=== PATIENT | female | born 1955 | race Caucasian/White ===

== ENCOUNTER 2019-04-06 10:50 | Emergency (ER) | payer BC ==
[~2019-04-06] VITALS: Ht 160 cm; Wt 98.0 kg
--- NOTE | 2019-04-06 11:01 | NUR ---
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 PATIENT A/O X 3, SLEEPY. NOTED WITH RIGHT SIDE FACIAL WEAKNESS. DAUGHTER, ADOLFO AT BEDSIDE. PATIENT CONNECTED TO MONITOR. DR BRENNAN AT BEDSIDE.
--- NOTE | 2019-04-06 11:44 | NUR ---
Patient discharged to home in stable condition. Written and verbal after care instructions given. Patient verbalizes understanding of instruction.
[2019-04-06 11:46] VITALS: BP 122/70
== END 2019-04-06 11:49 | disposition home or self-care (01) ==
LOC: ER 10:52
DX: T42.6X1A Poisoning by other antiepileptic and sedative-hypnotic drugs, accidental (unintentional), initial encounter (principal); R41.82 Altered mental status, unspecified; Z85.3 Personal history of malignant neoplasm of breast; Y92.89 Other specified places as the place of occurrence of the external cause